=== PATIENT | male | born 1980 ===

== ENCOUNTER 2017-10-29 10:45 | Emergency (ER) | payer OTHER ==
[2017-10-29 10:51] VITALS: BP 126/72; PULSE 77; RESP 20; TEMP 97; O2SAT 98
[2017-10-29] MEDS ORDERED: Oxycodone/Acetaminophen 5/325 mg Tab PO STA (12:23)
[2017-10-29] MEDS ORDERED: Oxycodone/Acetaminophen 5/325 mg Tab ONE (12:33)
--- NOTE | 2017-10-29 12:48 | RAD ---
PROCEDURE: Radiographs of the Right Shoulder HISTORY: trauma COMPARISON: No prior. FINDINGS: BONES: No acute fracture or destructive bony lesion identified. JOINTS: Normal. Glenohumeral and acromioclavicular joints preserved. No osteoarthritis. SOFT TISSUES: Normal. OTHER FINDINGS: None. IMPRESSION: Unremarkable radiographs of the right shoulder.
--- NOTE | 2017-10-29 13:10 | ED PDOC ---
HPI: General Adult Time Seen by Provider: 10/29/17 11:13 Chief Complaint (Nursing): Trauma History Per: Patient Additional Complaint(s): Pt. states earlier today he was at work when a ~300lb pipe fell on him injuring his R shoulder and R side of chest. 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 lost consciousness for ~30 seconds. States pt. does not remember falling down and as per his pasteurizing supervisor pt. was found lying on his R side. Denies head injury, vomiting, neck pain, numbness, tingling, other injury, abdominal pain. Past Medical History Reviewed: Historical Data, Nursing Documentation, Vital Signs Vital Signs: Last Vital Signs Temp 97 F L 10/29/17 10:48 Pulse 77 10/29/17 10:48 Resp 20 10/29/17 10:48 BP 126/72 10/29/17 10:48 Pulse Ox 98 10/29/17 14:49 - Medical History PMH: No Chronic Diseases - Family History Family History: States: No Known Family Hx - Allergies Allergies/Adverse Reactions: Allergies Allergy/AdvReac Type Severity Reaction Status Date / Time No Known Allergies Allergy Verified 10/29/17 10:48 Review of Systems ROS Statement: Except As Marked, All Systems Reviewed And Found Negative Neurological: Positive for: Headache Physical Exam - Reviewed Nursing Documentation Reviewed: Yes Vital Signs Reviewed: Yes - Physical Exam Appears: Positive for: Well, Non-toxic, No Acute Distress Head Exam: Positive for: ATRAUMATIC, NORMAL INSPECTION, NORMOCEPHALIC Skin: Positive for: Normal Color, Warm. Negative for: Rash Eye Exam: Positive for: EOMI, Normal appearance, PERRL ENT: Positive for: Normal ENT Inspection Neck: Positive for: Normal, Painless ROM Cardiovascular/Chest: Positive for: Regular Rate, Rhythm. Negative for: Chest Non Tender (R sided axillary chest wall tenderness) Respiratory: Positive for: CNT, Normal Breath Sounds Gastrointestinal/Abdominal: Positive for: Normal Exam, Bowel Sounds, Soft. Negative for: Tenderness Back: Positive for: Normal Inspection Extremity: Positive for: Normal ROM, Other (R lateral shoulder tenderness without deformity) Neurologic/Psych: Positive for: Alert, Oriented. Negative for: Aphasia, Facial Droop - ECG O2 Sat by Pulse Oximetry: 98 - Progress ED Course And Treament: CT chest w/o contrast, CT head w/o contrast; R shoulder x-ray ordered. Percocet 1 tab PO [address] 1348 CT head w/o contrast: negative R shoulder x-ray: no fx or dislocation CT chest w/o contrast: 3.4mm RML nodule; no pneumothorax, pulmonary contusion, or fx. Pt. informed of results. Repeat neuro exam is non-focal. Pt. instructed to f/u with [facility] for further evaluation of lung mass and to take Tylenol for pain. Disposition - Clinical Impression Clinical Impression: Head injury, Chest wall contusion, Shoulder injury - Patient ED Disposition Is Patient to be Admitted: No - Disposition Referrals: [facility] [Outside] Disposition: Routine/Home Disposition Time: 13:48 Condition: STABLE Instructions: Head Injury (ED), Shoulder Sprain (ED), Chest Wall Pain (ED) Forms: [facility] ([place]) Print Language: NICARAGUAN
--- NOTE | 2017-10-29 13:35 | CT ---
PROCEDURE: CT HEAD WITHOUT CONTRAST. HISTORY: Trauma. COMPARISON: None available. TECHNIQUE: Axial computed tomography images were obtained through the head/brain without intravenous contrast. Radiation dose: Total exam DLP = 781.67 mGy-cm. This CT exam was performed using one or more of the following dose reduction techniques: Automated exposure control, adjustment of the mA and/or kV according to patient size, and/or use of iterative reconstruction technique. FINDINGS: HEMORRHAGE: No intracranial hemorrhage. BRAIN: No mass effect or edema. No atrophy or chronic microvascular ischemic changes. VENTRICLES: No obstructive hydrocephalus. CALVARIUM: Unremarkable. PARANASAL SINUSES: Unremarkable as visualized. No significant inflammatory changes. MASTOID AIR CELLS: Unremarkable as visualized. No inflammatory changes. OTHER FINDINGS: None. IMPRESSION: No acute intracranial hemorrhage.
--- NOTE | 2017-10-29 13:49 | CT ---
PROCEDURE: CT Chest without contrast HISTORY: Trauma. COMPARISON: No prior study available for comparison scroll TECHNIQUE: Contiguous axial images were obtained through the chest without intravenous contrast enhancement. Sagittal and coronal reconstructions were performed. Radiation dose (DLP): 260.29 mGy-cm. This CT exam was performed using one or more of the following dose reduction techniques: Automated exposure control, adjustment of the mA and/or kV according to patient size, and/or use of iterative reconstruction technique. FINDINGS: LUNGS: No acute infiltrates however there appears to be some minor linear scarring changes in left lung base. Minor biapical pleural thickening with small bleb changes seen in the right lung apex. . There is a small approximately 3.4 mm nodule in the superior aspect lateral segment right middle lobe near the minor fissure. MEDIASTINUM: Unremarkable thoracic aorta. No aneurysm. Normal sized heart. Main pulmonary artery unremarkable. No vascular congestion. No lymphadenopathy. Few small nonspecific mediastinal lymph nodes are present. Evaluation for hilar adenopathy limited due to the lack of circulating intravenous contrast material. There is a small hiatal hernia. PLEURA: No pleural fluid. No pneumothorax. BONES: The vertebral bodies appear intact without evidence of acute or chronic compression fractures . No significant degenerative spondylosis. The ribs also appear intact however note is made of a small ring-like sclerotic density within the right lateral 7th rib nonspecific. UPPER ABDOMEN: Grossly unremarkable. OTHER FINDINGS: Small approximately 5.6 mm elliptical shaped calcification seen in the left superior the left pectoralis minor muscle. IMPRESSION: No evidence of acute consolidation - contusion pleural effusion or pneumothorax. . Ribs appear grossly intact though there is a small ring-like sclerotic sclerotic density in the right lateral 7th rib nonspecific Minor biapical pleural thickening and small right apical bleb changes. There is also a small approximately 3.4 mm nodule right middle lobe. Followup the CT scan in 6-12 months could be performed to assess stability. Incidental note made of a small elliptical shaped calcification within the left pectoralis minor musculature of uncertain etiology though could represent some old posttraumatic or post inflammatory sequela.
--- NOTE | 2017-11-01 19:36 | CARD ---
APPROVED REPORT EKG Measurement Heart [id number] <Conclusion> Normal sinus rhythm ST elevation, consider early repolarization, pericarditis, or injury Nonspecific ST and T wave abnormality Abnormal ECG
== END 2017-10-29 15:17 | disposition home or self-care (01) ==
LOC: H.ER 10:45
DX: S09.90XA Unspecified injury of head, initial encounter (principal); S20.219A Contusion of unspecified front wall of thorax, initial encounter; M25.511 Pain in right shoulder; W22.8XXA Striking against or struck by other objects, initial encounter; Y99.0 Civilian activity done for income or pay